=== PATIENT | female | born 1965 | race Caucasian/White ===

== ENCOUNTER 2023-07-27 11:54 | Outpatient (AMB) | payer OTHER, SELFPAY ==
--- NOTE | 2023-07-27 12:47 | AM.OFFWIN_ITS ---
Intake Vital Signs 07/27/23 12:48 Height 5 ft 4 in Weight 102.058 kg BMI 38.6 BP 142/82 H Blood Pressure Location Lt brachial Position Sitting Pulse 82 Pulse Source Pulse Oximeter Temp 97.9 F Temp Source Temporal Artery Scan Pulse Oximetry (%) 97 Intake Visit Reasons: [employer] hand Swelling Intake Note: pt is here for c/o left hand swelling Patient Tobacco Use Status: Never used Tobacco Allergies JOLEEN Inhibitors Allergy (Mild, Verified 07/27/23 12:48) Swelling lisinopril Allergy (Mild, Verified 07/27/23 12:48) Swelling Do you need a note to return to daycare/school/sports/work: Yes HPI [employer] hand Swelling HPI Details Patient presents with 2 days of swelling over the dorsal left hand over the 3rd metacarpal. She notes history of extensive surgery to remove some type of neuroma 12 years ago. She has had periods of swelling and redness since that time. She had a similar acute episode 1 month ago and was treated with prednisone at a local urgent care she does note they checked a uric acid level but was never reported backed her. [place] and [place] recently moved back to this area. There is no acute injury that initiated swelling today. [facility] Social History Patient Tobacco Use Status: Never used Tobacco Review of Systems Const Reports as per HPI and Reports no additional complaints Musc Reports no additional complaints and Reports as per HPI Skin/Breast Denies lesions Neuro Reports no additional complaints and Reports as per HPI Physical Exam Vital Signs: Last Vital Signs Temp 97.9 F 07/27/23 12:48 Pulse 82 07/27/23 12:48 BP 142/82 H 07/27/23 12:48 Pulse Ox 97 07/27/23 12:48 BMI result Body Mass Index 38.6 Const General: cooperative, comfortable and no acute distress Orientation/consciousness: patient oriented x3 Resp Effort & Inspection: normal respiratory effort Auscultation: clear to auscultation bilaterally Cardio Rate: regular rate Rhythm: regular rhythm Heart sounds: S1 normal heart sound present and S2 normal heart sound present Neuro General: patient oriented x3 Extrem Right upper extremity: normal to inspection Left upper extremity: normal capillary refill, edema and hand (Will take healed surgical scar over the 3rd metacarpal) Details: normal capillary refill, neurosensory exam normal, tenderness (Over the distal 3rd metacarpal), abnormal ROM of finger (Difficulty moving 3rd digit due to edema) and swelling (Discrete area of swelling over the dorsal hand over the 3rd metacarpal mild rubor and calor) Assessment & Plan Assessment & Plan (1) Left hand pain: Code(s): M79.642 - Pain in left hand Plan: X-rays had previously been taken at urgent care without finding. Will start patient on a course of Indocin, rest ice elevate reduce use of hand to as tolerated. I have given her a work note as such. Advise she should follow-up with PCP or local orthopedic walk-in if symptoms do not resolve or recur to be scheduled with a hand surgeon for further evaluation. Recurrence of previous neuromas are possible and what may be causing her recurring symptoms. Return to clinic as needed. Medications: New indomethacin ER 75 mg PO BID 10 days 20 caps 0RF Coding Level of Care Code New Pt Level 3 (66909) Diagnoses Left hand pain M79.642
[2023-07-27 12:48] VITALS: BP 142/82; PULSE 82; TEMP 36.6; O2SAT 97; BMI 38.6
== END 2023-07-27 13:10 | disposition home or self-care (01) ==
PROVIDERS: Visit Provider Physician Assistant
DX: M79.642 Pain in left hand (principal)
CPT/HCPCS: 99203

== ENCOUNTER 2024-05-05 09:37 | Outpatient (AMB) | payer OTHER, SELFPAY ==
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
[2024-05-05 09:42] VITALS: BP 162/94; PULSE 75; TEMP 37.1; O2SAT 97; BMI 37.6
== END 2024-05-05 10:08 | disposition home or self-care (01) ==
PROVIDERS: Visit Provider Nurse Practitioner Family
DX: Z23 Encounter for immunization (principal)
CPT/HCPCS: 90471; 90715; 99213